=== PATIENT | male | born 1990 | race African-American/Black ===

== ENCOUNTER 2021-01-17 19:32 | Emergency (ER) | payer OTHER ==
[~2021-01-17] VITALS: Ht 180.3 cm; Wt 111.1 kg
[~2021-01-17 19:32] MED LIST: AMOX1TAB12 PO; DICLOFENAC POTA50 MG PO; KETO10TA2 PO; SKELAXIN800 MG PO; TUSSI PRES-B L120 M1 PO; ZITHROMAX TRI-500 MG PO
== END 2021-01-17 22:59 | disposition home or self-care (01) ==
LOC: ER 19:32
DX: S13.4XXA Sprain of ligaments of cervical spine, initial encounter (principal); R51.9 Headache, unspecified; M47.894 Other spondylosis, thoracic region; X50.9XXA Other and unspecified overexertion or strenuous movements or postures, initial encounter; Y93.89 Activity, other specified; Y92.89 Other specified places as the place of occurrence of the external cause; Y99.8 Other external cause status
CPT/HCPCS: 70450; 93005; L0120

== ENCOUNTER 2021-04-11 08:00 | Outpatient (CLI) | payer OTHER | END 2021-04-11 08:30 | disposition home or self-care (01) | LOC: PPH VACUNA 08:00 | DX: Z23 Encounter for immunization (principal) ==

== ENCOUNTER 2021-05-01 08:00 | Outpatient (CLI) | payer OTHER | END 2021-05-01 08:30 | disposition home or self-care (01) | LOC: PPH VACUNA 08:00 | DX: Z23 Encounter for immunization (principal) ==

== ENCOUNTER 2021-12-15 08:00 | Outpatient (CLI) | payer OTHER | END 2021-12-15 08:30 | disposition home or self-care (01) | LOC: PPH VACUNA 08:00 | PROVIDERS: ATTEND Emergency Medicine Pediatric Emergency Medicine | DX: Z23 Encounter for immunization (principal) ==